=== PATIENT | female | born 1930 | race Caucasian/White ===

== ENCOUNTER 2017-04-22 09:18 | Outpatient (CLI) | payer MEDICARE ==
--- NOTE | 2017-04-22 12:41 | CT ---
CT NECK WITH AND WITHOUT CONTRAST (PARATHYROID PROTOCOL): History: 87-year-old female with hyperparathyroidism, with elevated serum PTH and elevated serum calcium. Technique: IV contrast: 120 ml of Isovue 370. Precontrast, 25 second delayed post contrast, and 65 second delayed post contrast, scans performed fr om 5 cm inferior to the chaitanya to the craniocervical junction. Coronal and sagittal reconstructions o f the post contrast images. FINDINGS: No consolidation or large mass at the lung apices. There are multiple small soft tissue density nodul es in the neck, some of them near the thyroid gland bilaterally, but none of them exhibit strong enha ncement during the arterial phase to indicate parathyroid adenoma. This is also true in the mediastin um and elsewhere in the neck. The right vallecula contains an approximately 0.8 x 0.6 x 0.7 cm round rim enhancing low density smal l mass. The center may be cystic or necrotic. The enhancing rim is approximately 2 mm thick. This is surrounded by thickening mucosa. There are adjacent calcifications. The lingual tonsil (base of tongu e) is diffusely hyperplastic. The palatine tonsils are not visualized. There is mucosal edema of the uvula. No enlargement of the adenoids. No mass is identified involving the submandibular, parotid, parapharyngeal, retropharyngeal or injury prevention coordinator ior cervical, or hospitality workers spaces. IMPRESSION: 1. No parathyroid adenoma identified. Recommend Nuclear Medicine Sestamibi parathyroid scan. 2. A small mass in the right vallecula, with adjacent calcifications. Recommend direct visualization for further evaluation. POS: CET
[2017-04-22] MEDS ORDERED: Iopamidol 370 76% 100 ML VIAL ONE (13:51)
[2017-04-22] MEDS ORDERED: Iopamidol 370 76% 50 ML VIAL FS ONE (13:51)
== END 2017-04-22 09:19 | disposition home or self-care (01) ==
LOC: CT 09:18
PROVIDERS: ATTEND Specialist
DX: E21.5 Disorder of parathyroid gland, unspecified (principal); J38.7 Other diseases of larynx
CPT/HCPCS: 70492